=== PATIENT | female | born 1985 | race Caucasian/White ===

== ENCOUNTER 2018-07-24 15:55 | Emergency (ER) | payer MEDICAID ==
[~2018-07-24] VITALS: Ht 167.6 cm; Wt 62.6 kg
[2018-07-24] MEDS ORDERED: ASPIRIN 325 MG TABLET PO ONE (16:30)
[2018-07-24 16:35] LABS: BASO % 1 % (0-3); EOS % 1 % (0-3); HEMATOCRIT 36.3 % (36.0-47.0); HEMOGLOBIN 11.8 g/dL (12.0-15.5); LYMPH # 2.2 x10^3/uL (1.0-4.8); LYMPH % 31 % (24-48); MEAN CORPUSCULAR HEMOGLOBIN 29 pg (25-35); MEAN CORPUSCULAR HGB CONC 33 g/dL (31-37); MEAN CORPUSCULAR VOLUME 90 fL (79-100); MONO # 0.4 x10^3/uL (0.0-1.1); MONO % 6 % (0-9); NEUT # 4.4 x10^3uL (1.8-7.7); NEUT % 62 % (31-73); PLATELET COUNT 208 x10^3/uL (140-400); RED BLOOD COUNT 4.03 x10^6/uL (3.50-5.40); RED CELL DISTRIBUTION WIDTH 13.8 % (11.5-14.5); WHITE BLOOD COUNT 7.1 x10^3/uL (4.0-11.0)
[2018-07-24 16:52] LABS: CALCIUM 9.5 mg/dL (8.5-10.1); CREATININE 0.8 mg/dL (0.6-1.0); GFR 83.7; POTASSIUM 3.3 mmol/L (3.5-5.1)
[2018-07-24 16:56] LABS: ALBUMIN 3.8 g/dL (3.4-5.0); ALBUMIN/GLOBULIN RATIO 0.8 (1.0-1.7); TOTAL BILIRUBIN 0.6 mg/dL (0.2-1.0); TOTAL PROTEIN 8.7 g/dL (6.4-8.2)
[2018-07-24 17:13] LABS: CREATINE KINASE 102 U/L (26-192)
[2018-07-24 17:39] LABS: BILIRUBIN,URINE NEGATIVE (NEG); CLARITY,URINE CLEAR; COLOR,URINE YELLOW; NITRITE,URINE NEGATIVE (NEG); PROTEIN,URINE NEGATIVE (NEG-TRACE); UROBILINOGEN,URINE 0.2 mg/dL (0.2 mg/dL)
[2018-07-24 17:45] LABS: AMPHETAMINE/METHAMPHETAMINE NEG (NEG); BACTERIA,URINE 0 /HPF (0-FEW); BARBITURATES NEG (NEG); BENZODIAZEPINES NEG (NEG); CANNABINOIDS NEG (NEG); COCAINE NEG (NEG); METHADONE NEG (NEG); OPIATES NEG (NEG); PHENCYCLIDINE NEG (NEG); RBC,URINE 0 /HPF (0-2); SQUAMOUS EPITHELIAL CELL,UR OCC /LPF; WBC,URINE 0 /HPF (0-4)
--- NOTE | 2018-07-24 17:57 | PHYS DOC ---
Past Medical History Past Medical History: No Pertinent History Past Surgical History: No Surgical History Alcohol Use: Rarely Drug Use: None Adult General Chief Complaint Chief Complaint: CHEST PAIN HPI HPI Patient is a 33 year old female in no significant medical history who presents to the ED today complaining of left-sided chest tightness as well as shortness of breath and a dry cough since yesterday. Patient states her symptoms are exacerbated by palpating the left side of her chest. She states her symptoms began while she was laying on her chest texting last night. She states nothing specific alleviates symptoms. Patient denies chest pain. Denies any chance she is . Denies any recent hospitalization, denies any use of hormones or steroids, denies any unilateral leg pain, any personal family history of DVTs or PEs. Denies coughing up blood. Review of Systems Review of Systems Constitutional: Denies fever or chills [] Eyes: Denies change in visual acuity, redness, or eye pain [] HENT: Denies nasal congestion or sore throat [] Respiratory: Reports shortness of breath. Reports cough Cardiovascular: Reports chest tightness GI: Denies abdominal pain, nausea, vomiting, bloody stools or diarrhea [] : Denies dysuria or hematuria [] Musculoskeletal: Denies back pain or joint pain [] Integument: Denies rash or skin lesions [] Neurologic: Denies headache, focal weakness or sensory changes [] Endocrine: Denies polyuria or polydipsia [] All other systems were reviewed and found to be within normal limits, except as documented in this note. Current Medications Current Medications Current Medications Medications (Trade) Dose Ordered Sig/[facility] Start Time Stop Time Status Last Admin Dose Admin Aspirin (Karla Aspirin) 325 mg 1X ONCE 07/24/18 16:30 07/24/18 16:44 DC 07/24/18 16:46 325 MG Info (CONTRAST GIVEN -- Rx MONITORING) 1 each PRN DAILY PRN 07/24/18 18:15 07/26/18 18:14 Iohexol (Omnipaque 350 Mg/ml) 90 ml 1X ONCE 07/24/18 18:15 07/24/18 18:16 DC 07/24/18 18:23 90 ML Allergies Allergies Allergies Coded Allergies Type Severity Reaction Last Updated Verified naproxen Adverse Reaction Severe FACIAL TREMORS 07/24/18 Yes Uncoded Allergies Type Severity Reaction Last Updated Verified ALL MUSCLE RELAXERS Adverse Reaction Severe MAKES HER CRAZY 07/24/18 Physical Exam Physical Exam Constitutional: Well developed, well nourished, no acute distress, non-toxic appearance. [] HENT: Normocephalic, atraumatic, bilateral external ears normal, oropharynx moist, no oral exudates, nose normal. [] Eyes: PERRLA, EOMI, conjunctiva normal, no discharge. [] Neck: Normal range of motion, no tenderness, supple, no stridor. [] Cardiovascular:Heart rate regular rhythm, no murmur [] Lungs & Thorax: Bilateral breath sounds clear to auscultation [] Abdomen: Bowel sounds normal, soft, no tenderness, no masses, no pulsatile masses. [] Skin: Warm, dry, no erythema, no rash. [] Back: No tenderness, no CVA tenderness. [] Extremities: No tenderness, no cyanosis, no clubbing, ROM intact, no edema. [] Neurologic: Alert and oriented X 3, normal motor function, normal sensory function, no focal deficits noted. [] Psychologic: Affect normal, judgement normal, mood normal. [] Current Patient Data Vital Signs Vital Signs Date Time Temp Pulse Resp B/P (MAP) Pulse Ox O2 Delivery O2 Flow Rate FiO2 07/24/18 18:00 66 109/71 (84) 99 Room Air 07/24/18 16:10 98.4 16 98.4 Lab Values Laboratory Tests Test 07/24/18 16:20 07/24/18 17:25 White Blood Count 7.1 x10^3/uL (4.0-11.0) Red Blood Count 4.03 x10^6/uL (3.50-5.40) Hemoglobin 11.8 g/dL (12.0-15.5) L Hematocrit 36.3 % (36.0-47.0) Mean Corpuscular Volume 90 fL (79-100) Mean Corpuscular Hemoglobin 29 pg (25-35) Mean Corpuscular Hemoglobin Concent 33 g/dL (31-37) Red Cell Distribution Width 13.8 % (11.5-14.5) Platelet Count 208 x10^3/uL (140-400) Neutrophils (%) (Auto) 62 % (31-73) Lymphocytes (%) (Auto) 31 % (24-48) Monocytes (%) (Auto) 6 % (0-9) Eosinophils (%) (Auto) 1 % (0-3) Basophils (%) (Auto) 1 % (0-3) Neutrophils # (Auto) 4.4 x10^3uL (1.8-7.7) Lymphocytes # (Auto) 2.2 x10^3/uL (1.0-4.8) Monocytes # (Auto) 0.4 x10^3/uL (0.0-1.1) Eosinophils # (Auto) 0.0 x10^3/uL (0.0-0.7) Basophils # (Auto) 0.0 x10^3/uL (0.0-0.2) D-Dimer (Guera) 1.99 ug/mlFEU (0.00-0.50) H Sodium Level 139 mmol/L (136-145) Potassium Level 3.3 mmol/L (3.5-5.1) L Chloride Level 103 mmol/L (98-107) Carbon Dioxide Level 26 mmol/L (21-32) Anion Gap 10 (6-14) Blood Urea Nitrogen 11 mg/dL (7-20) Creatinine 0.8 mg/dL (0.6-1.0) Estimated GFR (Cockcroft-Gault) 83.7 BUN/Creatinine Ratio 14 (6-20) Glucose Level 108 mg/dL (70-99) H Calcium Level 9.5 mg/dL (8.5-10.1) Magnesium Level 2.0 mg/dL (1.8-2.4) Total Bilirubin 0.6 mg/dL (0.2-1.0) Aspartate Amino Transferase (AST) 18 U/L (15-37) Alanine Aminotransferase (ALT) 25 U/L (14-59) Alkaline Phosphatase 71 U/L (46-116) Creatine Kinase 102 U/L (26-192) Creatine Kinase MB (Mass) < 0.5 ng/mL (0.0-3.6) Creatine Kinase MB Relative Index % (0-4) Troponin I Quantitative < 0.017 ng/mL (0.000-0.055) MT-Qfw-V-Type Natriuretic Peptide 18 pg/mL (0-124) Total Protein 8.7 g/dL (6.4-8.2) H Albumin 3.8 g/dL (3.4-5.0) Albumin/Globulin Ratio 0.8 (1.0-1.7) L Thyroid Stimulating Hormone (TSH) 1.278 uIU/mL (0.358-3.74) Ethyl Alcohol Level < 10 mg/dL (0-10) Urine Collection Type Unknown Urine Color Yellow Urine Clarity Clear Urine pH 6.0 Urine Specific [place] 1.015 Urine Protein Negative mg/dL (NEG-TRACE) Urine Glucose (UA) Negative mg/dL (NEG) Urine Ketones (Stick) Negative mg/dL (NEG) Urine Blood Negative (NEG) Urine Nitrite Negative (NEG) Urine Bilirubin Negative (NEG) Urine Urobilinogen Dipstick 0.2 mg/dL (0.2 mg/dL) Urine Leukocyte Esterase Negative (NEG) Urine RBC 0 /HPF (0-2) Urine WBC 0 /HPF (0-4) Urine Squamous Epithelial Cells Occ /LPF Urine Bacteria 0 /HPF (0-FEW) POC Urine HCG, Qualitative Hcg negative (Negative) Urine Opiates Screen Neg (NEG) Urine Methadone Screen Neg (NEG) Urine Barbiturates Neg (NEG) Urine Phencyclidine Screen Neg (NEG) Urine Amphetamine/Methamphetamine Neg (NEG) Urine Benzodiazepines Screen Neg (NEG) Urine Cocaine Screen Neg (NEG) Urine Cannabinoids Screen Neg (NEG) Urine Ethyl Alcohol Neg (NEG) Laboratory Tests 07/24/18 16:20 Laboratory Tests 07/24/18 16:20 EKG EKG [address]Baker kaur rhythm HR 72 no STEMI[] Radiology/Procedures Radiology/Procedures []PROCEDURE: CT ANGIOGRAPHY CHEST CTA chest with and without contrast 07/24/2018. Reason for exam: Chest pain and elevated d-dimer. Possible pulmonary embolism. Helical thin section images were made through the chest using an infusion of 90 mL Omnipaque 350. MIP reconstructions also were performed. Exposure: One or more of the following individualized dose reduction techniques were utilized for this examination: 1. Automated exposure control 2. Adjustment of the mA and/or kV according to patient size 3. Use of iterative reconstruction technique. FINDINGS: The lungs are clear. The central airways appear normal. There are some mildly prominent right axillary lymph nodes. These have short axis dimension up to about 1 cm and are asymmetric with the left side. No enlarged mediastinal or hilar lymph nodes are seen. Triangular soft tissue density in the anterior mediastinum is consistent with normal thymus. Note is made of some asymmetric soft tissue density in the outer right breast extending over about 2 cm. Evaluation of the pulmonary arterial tree shows no abnormal filling defect extending to the subsegmental branch level. Graph images through the upper abdomen show no abnormality. IMPRESSION: No evidence of pulmonary embolism. Mild right axillary adenopathy. There is some asymmetric soft tissue density in the outer right breast. Correlation with physical findings is recommended, and evaluation with mammogram and/or ultrasound might be considered as well. Electronically signed by: Edwige Sierra Jr., MD (07/24/2018 6:37 PM) [facility] DICTATED and SIGNED BY: EDWIGE SIERRA Jr, MD DATE: 07/24/181831 Course & Med Decision Making Course & Med Decision Making Pertinent Labs and Imaging studies reviewed. (See chart for details) This is a 33-year-old female patient presenting to the ED today complaining of left-sided chest tightness, shortness of breath, and a dry cough since yesterday. PERC score is 0. Patient's troponin is normal, CBC, CMP, no acute findings. D-dimer 1.99. CTA chest was obtained. A CTA chest was noted for-Mild right axillary adenopathy. There is some asymmetric soft tissue density in the outer right breast. Correlation with physical findings is recommended, and evaluation with mammogram and/or ultrasound might be considered as well. I did the physical exam on patient's breast. She does have cystic bilateral breasts. I recommended she follows up with an [employer]AL MAIL [employer]ER. She states she stopped an [employer] and was told she could have HPV lesions. She states she never followed up since then. She was also provided an POSTAL MAIL CARRIER if she decided to use the one we provided. D/c with albuterol inhaler as needed. Dragon Disclaimer Dragon Disclaimer This electronic medical record was generated, in whole or in part, using a voice recognition dictation system. Departure Departure Impression: Primary Impression: Chest tightness Additional Impressions: Cough Breast mass Disposition: HOME, SELF-CARE Condition: STABLE Referrals: NO PCP (PCP) DONAVAN HOUSTON MD follow up in 1 week Patient Instructions: Breast Cyst, Cough, Adult, [id number] Additional Instructions: You were evaluated in the emergency room, you were noted to have enlarged lymph node to the right axilla as well as a mass in the right breast. Please contact your POSTAL MAIL CARRIER and follow-up as soon as possible for further testing. Scripts Albuterol Sulfate (VENTOLIN HFA INHALER) 18 Gm Hfa.aer.ad 2 PUFF INH Q4HRS for FOR ASTHMA, #1 INHALER 0 Refills Prov: CARMELO BOWER APRN 07/24/18 Problem Qualifiers CARMELO BOWER APRN Jul 24, 2018 17:57
[2018-07-24 18:00] VITALS: BP 109/71
[2018-07-24] MEDS ORDERED: CONTRAST GIVEN. MC PRN (18:15)
[2018-07-24] MEDS ORDERED: IOHEXOL 350 MG/ML 100 ML VIAL. IV ONE (18:15)
--- NOTE | 2018-07-24 18:42 | RAD ---
CTA chest with and without contrast 07/24/2018. Reason for exam: Chest pain and elevated d-dimer. Possible pulmonary embolism. Helical thin section images were made through the chest using an infusion of 90 mL Omnipaque 350. MIP reconstructions also were performed. Exposure: One or more of the following individualized dose reduction techniques were utilized for this examination: 1. Automated exposure control 2. Adjustment of the mA and/or kV according to patient size 3. Use of iterative reconstruction technique. FINDINGS: The lungs are clear. The central airways appear normal. There are some mildly prominent right axillary lymph nodes. These have short axis dimension up to about 1 cm and are asymmetric with the left side. No enlarged mediastinal or hilar lymph nodes are seen. Triangular soft tissue density in the anterior mediastinum is consistent with normal thymus. Note is made of some asymmetric soft tissue density in the outer right breast extending over about 2 cm. Evaluation of the pulmonary arterial tree shows no abnormal filling defect extending to the subsegmental branch level. Graph images through the upper abdomen show no abnormality. IMPRESSION: No evidence of pulmonary embolism. Mild right axillary adenopathy. There is some asymmetric soft tissue density in the outer right breast. Correlation with physical findings is recommended, and evaluation with mammogram and/or ultrasound might be considered as well. Electronically signed by: Dakota Sierra Jr., MD (07/24/2018 6:37 PM) [facility]
[2018-07-24] MEDS ORDERED: VENTOLIN HFA18 GM INH (19:28)
--- NOTE | 2018-07-25 03:11 | RAD ---
PORTABLE CHEST 1V Clinical History: Technique: AP view of the chest was obtained at 07/24/2018 4:26 PM. Comparison: None. Findings: The cardiomediastinal silhouette is normal. The pulmonary vasculature is normal. The lungs and pleural margins are clear. Impression: No evidence of an acute cardiopulmonary process. Electronically signed by: Ron Mobley III, MD (07/25/2018 3:06 AM) [facility]
--- NOTE | 2018-07-25 11:00 | EKG ---
[facility] [address] [place] [address] Test Date: 2018-07-24 Test Time: 15:59:41 Pat Name: JOYCELYN BAHENA Department: Room: Gender: F Machine Hand: : 1985 Requested By: CARMELO BOWER Order Number: [id number] Reading MD: Ihsan Abdi MD Measurements Intervals [place] Rate: 72 P: 60 AL: 166 QRS: 60 QRSD: 96 T: -6 QT: 350 QTc: 385 Interpretive Statements SINUS RHYTHM NON-SPECIFIC ST/T CHANGES Electronically Signed On 07-28-2018 10:26:06 [employer] by Ihsan Abdi MD
== END 2018-07-24 19:38 | disposition home or self-care (01) ==
LOC: ER 15:55
DX: R07.89 Other chest pain (principal); R05 Cough; N63.0 Unspecified lump in unspecified breast; Z88.5 Allergy status to narcotic agent
CPT/HCPCS: 36415; 71045; 71275; 80053; 80307; 81001; 81025; 82553; 83735; 83880; 84443; 84484; 85025; 85379; 93005; 99284; G0480; Q9967